=== PATIENT | male | born 1960 | race African-American/Black ===

== ENCOUNTER 2017-11-15 11:31 | Emergency (ER) | payer OTHER, SELFPAY ==
[~2017-11-15 11:31] MED LIST: Ciprofloxacin 0.3% Ophth Drops 2.5 ml Bottle ONE
[2017-11-15] MEDS ORDERED: Fluorescein Opthalmic Strip ONE (11:36)
[2017-11-15] MEDS ORDERED: Adacel (T-DAP) 0.5 ML VIAL ONE (11:41)
== END 2017-11-15 12:07 | disposition home or self-care (01) ==
LOC: BURERS 11:31
DX: T15.12XA Foreign body in conjunctival sac, left eye, initial encounter (principal); J45.909 Unspecified asthma, uncomplicated; X58.XXXA Exposure to other specified factors, initial encounter
CPT/HCPCS: 65205; 90471; 90715

== ENCOUNTER 2019-07-27 12:36 | Emergency (ER) | payer OTHER ==
--- NOTE | 2019-07-27 13:07 | RAD ---
XR Chest 1 View Portable HISTORY: Chest pain COMPARISON: None. FINDINGS: Heart size and mediastinum are within normal limits. The lungs are clear of infiltrates. No significant bony findings. IMPRESSION: No active intrathoracic disease.
[2019-07-27] MEDS ORDERED: Aspirin Chewable 81 MG TAB ONE (13:10)
[2019-07-27 13:15] LABS: ALT (SGPT) 12 U/L (8-55); AST (SGOT) 15 U/L (5-34); Albumin 4.4 g/dL (3.5-5.0); Alkaline Phosphatase 98 U/L (40-110); Anion Gap 14 mmol/L (10-20); BUN (Urea Nitrogen) 10 mg/dL (8.4-25.7); Bilirubin, Total 1.3 mg/dL (0.2-1.2); Calc. Creatinine Clearance 0 mL/min (70-130); Calcium 8.9 mg/dL (7.8-10.44); Carbon Dioxide 24 mmol/L (22-29); Chloride 103 mmol/L (98-107); Estimated GFR-MDRD 68; Globulin 3.4 g/dL (2.4-3.5); Glucose 170 mg/dL (70-105); Lipase 21 U/L (8-78); Potassium 3.5 mmol/L (3.5-5.1); Protein, Total 7.8 g/dL (6.0-8.3); Sodium 137 mmol/L (136-145)
[2019-07-27 13:19] LABS: Eosinophils 5 % (0-10); Hemoglobin 12.7 g/dL (14.0-18.0); Lymphocytes 37 % (21-51); MDiff Complete? YES; Mean Corpuscular HGB CONC 31.5 g/dL (32.0-36.0); Mean Corpuscular Volume 98.4 fL (78.0-98.0); Mean Platelet Volume 7.4 fL (7.4-10.4); Monocytes 3 % (0-10); Neutrophil 55 % (42-75); Platelet Count 251 thou/uL (130-400); RBC Distribution Width 11.2 % (11.5-14.5); White Blood Cell (WBC) Count 5.2 thou/uL (4.8-10.8)
== END 2019-07-27 13:40 | disposition home or self-care (01) ==
LOC: BURERS 12:36
DX: F14.10 Cocaine abuse, uncomplicated (principal); F12.10 Cannabis abuse, uncomplicated; J06.9 Acute upper respiratory infection, unspecified; R07.89 Other chest pain; J45.909 Unspecified asthma, uncomplicated; F17.210 Nicotine dependence, cigarettes, uncomplicated; Z79.82 Long term (current) use of aspirin
CPT/HCPCS: 36415; 71045; 80053; 83690; 84484; 85025; 93005